=== PATIENT | male | born 1975 | race Native Hawaiian/Other Pacific Islander ===

== ENCOUNTER 2017-06-08 00:54 | Observation (INO) | payer OTHER ==
[~2017-06-08] VITALS: Ht 177.8 cm; Wt 99.9 kg
[2017-06-08] VITALS (7 sets, daily range): BP systolic 111–132; BP diastolic 60–93; TEMP 97.7–99; Ht 177.8 cm; Wt 99.9 kg
[2017-06-08 02:09] LABS: PLATELET COUNT 238 K/uL (142-355)
[2017-06-08 02:17] LABS: POTASSIUM 3.9 mmol/L (3.6-5.2)
[2017-06-08 02:33] LABS: PARTIAL THROMBOPLASTIN TIME 24.3 SECONDS (24.5-33.6)
[2017-06-08] MEDS ORDERED: AMLODIPINE BESYLATE PO (03:19)
[2017-06-08] MEDS ORDERED: LIPITOR10 MG PO (03:19)
--- NOTE | 2017-06-08 03:40 | NUR ---
RECEIVED REPORT FROM Christy SAL RN IN ED.
--- NOTE | 2017-06-08 04:00 | NUR ---
PT ARRIVED TO FLOOR VIA WHEELCHAIR PER ED STAFF. PT IS AWAKE, ALERT, AND ORIENTED. FURTHER ASSESSMENT DONE CHARTED.
--- NOTE | 2017-06-08 10:22 | NUR ---
25G LW D/C. PT TOLERATED WELL. 23G RAC X1 ATTEMPT. PT TOLERATED WELL. NAD NOTED. WILL CONTINUE TO MONITOR.
--- NOTE | 2017-06-08 13:57 | NUR ---
PT SITTING UP IN BED WITH LEGS CROSSED. DENIES ANY CHEST PAIN OR SHORTNESS OF BREATH AT THIS TIME. NAD NOTED. WILL CONTINUE TO MONITOR.
[2017-06-09] VITALS: BP 107/57; TEMP 97.9
[2017-06-09 04:00] VITALS: BP 111/56; TEMP 98.1
[2017-06-09 05:02] LABS: POTASSIUM 4.4 mmol/L (3.6-5.2)
[2017-06-09 05:10] LABS: PLATELET COUNT 219 K/uL (142-355)
== END 2017-06-09 17:00 | disposition home or self-care (01) ==
LOC: ED 00:54 → MED/SURG 03:20
PROVIDERS: ADMIT Specialist
DX: R07.89 Other chest pain (principal); G20 Parkinson's disease; I20.8 Other forms of angina pectoris; J98.01 Acute bronchospasm; R73.09 Other abnormal glucose; R06.02 Shortness of breath
CPT/HCPCS: 36415; 80053; 82550; 82948; 83880; 84484; 85027; 85379; 85610; 85730; 93005; 94664; 96372; 96374; 99220; 99283; G0378; J2930

== ENCOUNTER 2017-06-17 20:30 | Observation (INO) | payer OTHER ==
[~2017-06-17] VITALS: Ht 177.8 cm; Wt 96.4 kg
[~2017-06-17 20:30] MED LIST: AMLODIPINE BESYLATE PO; LIPITOR10 MG PO
[2017-06-17 20:40] VITALS: BP 142/94; TEMP 98.1
[2017-06-17] MEDS ORDERED: PROZAC10 MG PO (20:42)
[2017-06-17] MEDS ORDERED: ABILIFY20 MG (20:43)
[2017-06-17] MEDS ORDERED: ADDERALL20 MG (20:44)
[2017-06-17 21:06] VITALS: BP 127/89
[2017-06-17 21:28] LABS: PLATELET COUNT 217 K/uL (142-355)
[2017-06-17 21:36] VITALS: BP 120/80
[2017-06-17 21:55] LABS: POTASSIUM 3.6 mmol/L (3.6-5.2)
[2017-06-17 22:10] LABS: PARTIAL THROMBOPLASTIN TIME 24.1 SECONDS (24.5-33.6)
--- NOTE | 2017-06-17 22:56 | NUR ---
RECEIVED REPORT FROM Felix CLAYTON RN IN ED
--- NOTE | 2017-06-17 23:25 | NUR ---
PT ARRIVED TO FLOOR VIA WHEELCHAIR PER ED STAFF AT THIS TIME. PT IS AWAKE, ALERT, AND ORIENTED. PT WAS ORIENTED TO ROOM AND CALL SYSTEM. FURTHER ASSESSMENT DONE AT THIS TIME CHARTED.
[2017-06-17 23:35] VITALS: BP 121/80; TEMP 98.3; Ht 177.8 cm; Wt 96.4 kg
[2017-06-17 23:44] VITALS: BP 121/80; TEMP 98.3
[2017-06-18 04:00] VITALS: BP 101/61; TEMP 97.8
[2017-06-18 08:00] VITALS: BP 105/75; TEMP 98.2
[2017-06-18 12:00] VITALS: BP 122/74; TEMP 98.3
--- NOTE | 2017-06-18 16:11 | NUR ---
IV D/C'd. DISCHARGE INSTRUCTION SIGNED AND GIVEN. Pt. EXIT OUT OF FRONT ENTRANCE. AMBULATIN
== END 2017-06-18 16:11 | disposition home or self-care (01) ==
LOC: ED 20:30 → MED/SURG 22:43
PROVIDERS: ADMIT Specialist
DX: R07.89 Other chest pain (principal); F90.8 Attention-deficit hyperactivity disorder, other type; I10 Essential (primary) hypertension
CPT/HCPCS: 36415; 80053; 82550; 83880; 84484; 85027; 85379; 85610; 85730; 93005; 96374; 99220; 99284; G0378; J1650; J2270; J2405

== ENCOUNTER 2022-01-26 19:17 | Emergency (ER) | payer OTHER ==
[~2022-01-26] VITALS: Ht 170.2 cm; Wt 147.9 kg
[~2022-01-26 19:17] MED LIST changes: +ABILIFY20 MG; +ADDERALL20 MG; +PROZAC10 MG PO
[2022-01-26 20:10] VITALS: BP 165/88; TEMP 98.1
== END 2022-01-26 20:15 | disposition home or self-care (01) ==
LOC: ED 19:17
DX: U07.1 COVID-19 (principal); I10 Essential (primary) hypertension; E66.8 Other obesity
CPT/HCPCS: 87502; 87635; 99282; U0003

== ENCOUNTER 2022-08-29 19:54 | Emergency (ER) | payer OTHER ==
[~2022-08-29] VITALS: Ht 170.2 cm; Wt 170.1 kg
[2022-08-29 20:00] VITALS: TEMP 98.5
[2022-08-29 20:48] LABS: PLATELET COUNT 168 K/uL (142-355)
[2022-08-29 20:54] LABS: POTASSIUM 4.1 mmol/L (3.6-5.2)
[2022-08-29 21:30] LABS: PARTIAL THROMBOPLASTIN TIME 19.6 SECONDS (23.9-36.7)
[2022-08-29 22:50] VITALS: BP 148/98
== END 2022-08-29 22:45 | disposition home or self-care (01) ==
LOC: ED 19:54
PROVIDERS: Family Medicine
DX: I16.0 Hypertensive urgency (principal); I20.9 Angina pectoris, unspecified; E66.9 Obesity, unspecified; R06.02 Shortness of breath; I25.10 Atherosclerotic heart disease of native coronary artery without angina pectoris
CPT/HCPCS: 36415; 36600; 80053; 82150; 82550; 82805; 83690; 83880; 84484; 85027; 85379; 85610; 85730; 96374; 99284; J3490